=== PATIENT | female | born 1965 | race Caucasian/White ===

== ENCOUNTER 2016-06-19 09:45 | Emergency (ER) | payer OTHER ==
[2016-06-19 10:38] VITALS: BP 102/78; PULSE 64; RESP 16; O2SAT 97
--- NOTE | 2016-06-19 11:36 | UCPHY ---
[id number] 06/19/16 11:03 HPI/ROS: CHIEF COMPLAINT: Right wrist pain HISTORY OF PRESENT ILLNESS: 50-year-old female presents complaining of right wrist pain after she slipped on ice today falling on outstretched right hand. Patient is [id number]. Patient denies head strike, any complaints. She denies numbness or tingling to her just right pain. No previous injuries to this wrist. (Adalgisa Carrillo) Physical Exam: GEN: Awake, alert, oriented, no acute distress RESP: nl resp effort MSK: Right wrist swelling and ecchymosis over pisiform, tenderness to palpation over ulnar styloid, no snuffbox tenderness, no distal radius tenderness, sensation intact to light touch, good radial motor and sensory, 2+ radial pulses, sensation intact to light touch SKIN: No break in skin (Adalgisa Carrillo) Constitutional: Initial Vital Signs Heart Rate 64 06/19/16 10:36 Respiratory Rate 16 06/19/16 10:36 Blood Pressure 102/78 06/19/16 10:36 O2 Sat (%) 97 06/19/16 10:36 O2 Delivery Mode Room Air Allergies/Adverse Reactions: codeine [Codeine] Adverse Reaction (Mild, Verified 06/19/16 11:06) Other-Enter Comments Home Medications: Medication Instructions Recorded Desmopressin [DDAVP Nasal [place] 1 spray ALTNARE DAILY 09/08/12 (RX)] Hydrocortisone [Cortef] 09/08/12 Levothyroxine [Synthroid 100 mcg 09/08/12 (RX)] Medical Decision Making - Diagnostics Imaging: Right wrist x-ray independently reviewed by me- triquetral fracture (Adalgisa Carrillo) ED Course/Re-evaluation: 1pm- radiologist called after the patient was discharged home indicating a triquetrum fracture. Patient was placed in a Velcro wrist splint prior to discharge, I have left her a message to call back to discuss her fracture seen on x-ray. She was given Ortho follow-up. (Adalgisa Carrillo) Urgent Care PA supervision Physician documentation: The patient was evaluated and managed by the physician executive assistant to president. My co- signature indicates that I have reviewed this chart and I agree with the findings and plan of care as documented. I am the secondary supervising physician. (Tone Cooper) Departure - Departure Disposition: Home, Routine, Self-Care Clinical Impression: Right wrist injury Condition: Good Instructions: Wrist Injury (ED) Additional Instructions: Rest, ice, elevate, take 600mg of ibuprofen every 8 hours with food for 3-5 days as needed for pain and swelling. Follow up with orthopedist in 3-5 days, call today schedule this appointment. Wear your wrist splint until you follow up with orthopedist. Return to the emergency department for any numbness, tingling, discoloration of you limb or other concerns. Referrals: Tone Albarran MD [Medical Doctor] - As per Instructions (Orthopedist on-call ) - PQRS PQRS Measurement: na (Adalgisa Carrillo)
--- NOTE | 2016-06-19 13:20 | DX ---
Right Wrist, Four Views History: Fall. Trauma, pain. Findings: Nondisplaced acute triquetral fracture noted. Distal radius and ulna appear intact. No defi nite scaphoid fracture. Metacarpal bases appear intact. Impression: Triquetral nondisplaced fracture. Findings and recommendations discussed with Emergency Department physician, Dr. Tone Cooper, at 1310 hours today. Final report concurs with initial preliminary interpretation.
== END 2016-06-19 11:55 | disposition home or self-care (01) ==
LOC: CED 09:45
DX: S69.91XA Unspecified injury of right wrist, hand and finger(s), initial encounter (principal); W00.0XXA Fall on same level due to ice and snow, initial encounter
CPT/HCPCS: 73110-PO; 99214-PO; G0463-PO; L3908

== ENCOUNTER 2016-08-12 22:16 | Emergency (ER) | payer OTHER | END 2016-08-12 22:20 | disposition home or self-care (01) | LOC: CED 22:16 | DX: R50.9 Fever, unspecified (principal); Z53.21 Procedure and treatment not carried out due to patient leaving prior to being seen by health care provider ==

== ENCOUNTER 2016-08-12 22:37 | Inpatient (IN) | payer OTHER ==
[2016-08-12] MEDS ORDERED: ACETAMINOPHEN 325 MG SUPP PR ONE (22:46)
[2016-08-12] MEDS ORDERED: ACETAMINOPHEN 500 MG TAB ONE (22:46)
[2016-08-12] MEDS ORDERED: IBUPROFEN 600 MG TAB PO ONE ×2 (22:50→22:52)
[2016-08-12] MEDS ORDERED: ACETAMINOPHEN 500 MG TAB PO ONE (22:52)
[2016-08-12] MEDS ORDERED: HYDROCORTISONE 100 MG/2 ML VIAL IVP ONE (22:53)
[2016-08-12] MEDS ORDERED: HYDROCORTISONE 100 MG/2 ML VIAL ONE (22:53)
[2016-08-12] MEDS ORDERED: NS 1,000 ML IV ONE ×2 (22:55→23:48)
--- NOTE | 2016-08-12 23:04 | CPEKG ---
Heart Rate: 84 RR Interval: 714 P-R Interval: 136 QRSD Interval: 102 QT Interval: 372 QTC Interval: 440 P [place]: 20 QRS [place]: 15 T Wave [place]: 58 EKG Severity - NORMAL ECG - EKG Impression: SINUS RHYTHM Electronically Signed By: Partha Hanna 13-Aug-2016 02:23:29
[2016-08-12 23:11] LABS: % IMMATURE GRANULYOCYTES 0.3 % (0.0-1.1); ABSOLUTE IMMATURE GRANULOCYTES 0.02 10^3/uL (0.00-0.10); ADD DIFF? NO; ADD MORPH? NO; ADD SCAN? NO; ATYPICAL LYMPHOCYTE FLAG 0 (0-99); FRAGMENT RBC FLAG 0 (0-99); HEMATOCRIT 44.1 % (38.0-47.0); HEMOGLOBIN 15.1 g/dL (12.6-16.3); LEFT SHIFT FLG 0 (0-99); LIPEMIA HEMOLYSIS FLAG 90 (0-99); MEAN CELL HEMOGLOBIN 30.7 pg (27.9-34.1); MEAN CELL HEMOGLOBIN CONCENTR. 34.2 g/dL (32.4-36.7); MEAN CELL VOLUME 89.6 fL (81.5-99.8); MEAN PLATELET VOLUME 10.5 fL (8.7-11.7); PLATELET CLUMPS FLAG 40 (0-99); PLATELET COUNT 255 10^3/uL (150-400); RED BLOOD CELL COUNT 4.92 10^6/uL (4.18-5.33); RED CELL DISTRIBUTION WIDTH 12.9 % (11.5-15.2)
--- NOTE | 2016-08-12 23:13 | EDPHY ---
H & P Stated Complaint: COLD LIKE SX 2 DAYS, CONFUSION SINCE 9 P.M. 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 Patient has been having upper respiratory symptoms for the last 2 days with subjective fevers. She has some nausea and vomiting on Saturday. Has had a dry nonproductive cough. Otherwise suggest is in fevers and general malaise. This evening she was feeling unwell in her brought her dinner in bed. He checked on her later when she had any eat much. About 9 o'clock this evening he went to check on her and she was staring into space and was not responding to him at that time. She would just repeat single words. She did not have a loss of consciousness. She has had a similar episode about 10 years ago for which she is admitted to [facility] for 10 days for septic workup which did not reveal any acute source of infection. She does normally take hydrocortisone 10 mg twice a day states she has been taking her medications. No urinary symptoms. Right now is only complaining of feeling cold. ROS: 10 point Review of Systems is negative except as noted in the HPI. 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 Medications: Hydrocortisone 10 mg twice a day Thyroxine DDAVP Allergies: Codeine Physical exam: Gen: Awake, Alert, No Distress, fever to 40.2 HEENT: Nose: no rhinorrhea Eyes: PERRLA, EOMI Mouth: Moist mucosa Neck: Supple, no JVD Chest: nontender, lungs clear to auscultation Heart: S1, S2 normal, no murmur Abd: Soft, mild generalized tenderness, nonfocal, no guarding Back: no CVA tenderness, no midline tenderness Ext: no edema, non-tender Skin: no rash Neuro: CN II-XII intact, Sensation grossly intact, Strength 5/5 in bilateral upper and lower extremities - Personal History Current Tetanus/Diphtheria Vaccine: Yes Current Tetanus Diphtheria and Acellular Pertussis (TDAP): Yes Tetanus Vaccine Date: 2011 - Medical/Surgical History Hx Asthma: No Hx Chronic Respiratory Disease: No Hx Diabetes: No Hx Cardiac Disease: No Hx Renal Disease: No Hx Cirrhosis: No Hx Alcoholism: No Hx HIV/AIDS: No Hx Splenectomy or Spleen Trauma: No Other PMH: PITUITARY TUMOR, PACEMAKER - Social History Smoking Status: Never smoked Constitutional: Initial Vital Signs Temperature (C) 40.2 C H 08/12/16 22:40 Heart Rate 102 H 08/12/16 22:40 Respiratory Rate 20 08/12/16 22:40 Blood Pressure 110/81 H 08/12/16 22:40 O2 Sat (%) 93 08/12/16 22:40 O2 Delivery Mode Room Air Allergies/Adverse Reactions: codeine [Codeine] Adverse Reaction (Mild, Verified 08/12/16 22:50) Other-Enter Comments Home Medications: Medication Instructions Recorded Desmopressin [DDAVP Nasal [place] 1 spray ALTNARE DAILY 09/08/12 (RX)] Hydrocortisone [Cortef] 09/08/12 Levothyroxine [Synthroid 100 mcg 09/08/12 (RX)] Medical Decision Making ED Course/Re-evaluation: 50-year-old with a history of hypoadrenalism secondary to pituitary adenoma with fever here. There is no focal source of infection on exam. This could be Adisonian Crisis vs infection. I have given her 100 mg of hydrocortisone intravenously. Blood cultures, chest x-ray, urine cultures have been sent. - Data Points Laboratory Results: Laboratory Results 08/12/16 22:48 08/12/16 22:48 08/12/16 08/12/16 08/12/16 23:33 23:15 22:48 WBC RBC Hgb Hct MCV MCH MCHC RDW Plt Count MPV Neut % (Auto) Lymph % (Auto) [place] % (Auto) Eos % (Auto) Baso % (Auto) Nucleat RBC Rel Count Absolute Neuts (auto) Absolute Lymphs (auto) Absolute Monos (auto) Absolute Eos (auto) Absolute Basos (auto) Absolute Nucleated RBC Immature Gran % Immature Gran # Sodium 133 mEq/L L mEq/L (134-144) Potassium 3.3 mEq/L L mEq/L (3.5-5.2) Chloride 94 mEq/L L mEq/L (97-110) Carbon Dioxide 26 mEq/l mEq/l (22-31) Anion Gap 13 mEq/L mEq/L (8-16) BUN 21 mg/dL mg/dL (7-23) Creatinine 1.3 mg/dL H mg/dL (0.6-1.0) Estimated GFR 43 Glucose 77 mg/dL mg/dL (70-100) Calcium 9.1 mg/dL mg/dL (8.5-10.4) Total Bilirubin 0.8 mg/dL mg/dL (0.1-1.4) Conjugated Bilirubin 0.6 mg/dL H mg/dL (0.0-0.5) Unconjugated Bilirubin 0.2 mg/dL mg/dL (0.0-1.1) AST 115 IU/L H IU/L (14-46) ALT 83 IU/L H IU/L (9-52) Alkaline Phosphatase 210 IU/L H IU/L (38-126) Total Protein 7.9 g/dL g/dL (6.3-8.2) Albumin 4.4 g/dL g/dL (3.5-5.0) Lipase 328.0 IU/L H IU/L (23-300) Urine Color PALE YELLOW Urine Appearance CLEAR Urine pH 5.0 (5.0-7.5) Ur Specific [place] 1.003 (1.002-1.030) Urine Protein NEGATIVE (NEGATIVE) Urine Ketones NEGATIVE (NEGATIVE) Urine Blood NEGATIVE (NEGATIVE) Urine Nitrate NEGATIVE (NEGATIVE) Urine Bilirubin NEGATIVE (NEGATIVE) Urine Urobilinogen NEGATIVE EU EU (0.2-1.0) Ur Leukocyte Esterase NEGATIVE (NEGATIVE) Ur Culture Indicated? NOT INDICATED (NI) Urine Glucose NEGATIVE (NEGATIVE) Influenza Typ A,B (DFA) Pending 08/12/16 22:48 WBC 6.59 10^3/uL 10^3/uL (3.80-9.50) RBC 4.92 10^6/uL 10^6/uL (4.18-5.33) Hgb 15.1 g/dL g/dL (12.6-16.3) Hct 44.1 % % (38.0-47.0) MCV 89.6 fL fL (81.5-99.8) MCH 30.7 pg pg (27.9-34.1) MCHC 34.2 g/dL g/dL (32.4-36.7) RDW 12.9 % % (11.5-15.2) Plt Count 255 10^3/uL 10^3/uL (150-400) MPV 10.5 fL fL (8.7-11.7) Neut % (Auto) 58.8 % % (39.3-74.2) Lymph % (Auto) 27.5 % % (15.0-45.0) [place] % (Auto) 12.0 % % (4.5-13.0) Eos % (Auto) 0.6 % % (0.6-7.6) Baso % (Auto) 0.8 % % (0.3-1.7) Nucleat RBC Rel Count 0.0 % % (0.0-0.2) Absolute Neuts (auto) 3.88 10^3/uL 10^3/uL (1.70-6.50) Absolute Lymphs (auto) 1.81 10^3/uL 10^3/uL (1.00-3.00) Absolute Monos (auto) 0.79 10^3/uL 10^3/uL (0.30-0.80) Absolute Eos (auto) 0.04 10^3/uL 10^3/uL (0.03-0.40) Absolute Basos (auto) 0.05 10^3/uL 10^3/uL (0.02-0.10) Absolute Nucleated RBC 0.00 10^3/uL 10^3/uL (0-0.01) Immature Gran % 0.3 % % (0.0-1.1) Immature Gran # 0.02 10^3/uL 10^3/uL (0.00-0.10) Sodium Potassium Chloride Carbon Dioxide Anion Gap BUN Creatinine Estimated GFR Glucose Calcium Total Bilirubin Conjugated Bilirubin Unconjugated Bilirubin AST ALT Alkaline Phosphatase Total Protein Albumin Lipase Urine Color Urine Appearance Urine pH Ur Specific [place] Urine Protein Urine Ketones Urine Blood Urine Nitrate Urine Bilirubin Urine Urobilinogen Ur Leukocyte Esterase Ur Culture Indicated? Urine Glucose Influenza Typ A,B (DFA) Departure - Departure Disposition: [facility] Inpatient Acute Clinical Impression: Fever, Mental status change, Addisonian crisis Condition: Fair Referrals: Essie Burgos MD [Primary Care Provider] - As per Instructions
[2016-08-12 23:18] LABS: ALANINE AMINOTRANSFERASE 83 IU/L (9-52); ALBUMIN 4.4 g/dL (3.5-5.0); ALKALINE PHOSPHATASE 210 IU/L (38-126); ANION GAP 13 mEq/L (8-16); ASPARTATE AMINOTRANSFERASE 115 IU/L (14-46); BILIRUBIN,TOTAL 0.8 mg/dL (0.1-1.4); BILIRUBIN-CONJUGATED 0.6 mg/dL (0.0-0.5); BILIRUBIN-UNCONJUGATED 0.2 mg/dL (0.0-1.1); CALCIUM 9.1 mg/dL (8.5-10.4); CARBON DIOXIDE 26 mEq/l (22-31); CHLORIDE 94 mEq/L (97-110); CREATININE 1.3 mg/dL (0.6-1.0); GLOMERULAR FILTRATION RATE 43; GLUCOSE 77 mg/dL (70-100); POTASSIUM 3.3 mEq/L (3.5-5.2); SODIUM 133 mEq/L (134-144); TOTAL PROTEIN 7.9 g/dL (6.3-8.2)
[2016-08-12 23:28] LABS: COLOR PALE YELLOW; LEUKOCYTE ESTERASE,URINE NEGATIVE (NEGATIVE); NITRITE,URINE NEGATIVE (NEGATIVE)
[2016-08-13] MEDS ORDERED: ONDANSETRON 4 MG/2 ML VIAL IVP PRN (00:18)
[2016-08-13] MEDS ORDERED: LORazepam 2 MG/ML INJ IVP PRN (00:18)
[2016-08-13] MEDS ORDERED: ONDANSETRON DISINTEGRATING 4 MG TAB PO PRN (00:18)
[2016-08-13] MEDS ORDERED: oxyCODONE IR 5 MG TAB PO PRN (00:18)
[2016-08-13] MEDS ORDERED: ACETAMINOPHEN 500 MG TAB PO PRN (00:18)
[2016-08-13] MEDS ORDERED: NS 1,000 ML IV SCH (00:30)
[2016-08-13] MEDS ORDERED: NS 1,000 ML IV ONE (01:26)
[2016-08-13] MEDS: OSELTAMIVIR PHOSPHATE 75 MG CAP PO SCH ×4 (01:52→17:38)
--- NOTE | 2016-08-13 01:58 | PDGENHP ---
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 History is provided by who was at bedside. He states that beginning on Saturday (08/10) patient had developed flu-like symptoms, including chills, myalgias, generalized fatigue and some nausea. Symptoms progressed through Saturday, with some episodes of vomiting, nonbilious/nonbloody, and decreased p.o. intake. Initially this morning on day of presentation, patient seems to be getting better, was able to eat some soup, no longer had nausea or vomiting, but she continued to have fevers and chills throughout her course. Patient's reports checking on her between 5 and 7:00 p.m. and she was mentating well, although lying down in bed. however when he went to check in on her at around 9:00 p.m. and found her to be lethargic and minimally responsive. He then brought her to the ED for further evaluation. Patient's is uncertain if she had been taking all of her medications during her illness. Both he and his are aware that when she has an acute illness she should increase her dose of hydrocortisone, and patient states she had done this on Saturday. On arrival to the ED patient was noted to be febrile to 40.2C, with relatively stable BP and HR. labs revealed normal CBC, however BMP showed hyponatremia and hypokalemia. Chest x-ray did not show any obvious infection and UA was negative. Flu swab returned positive for influenza A. she was given 1 g of Tylenol and fever dm 2 improved and she was also given a stress dose Solu -Cortef. Shortly after given the steroids her mental status rapidly improved. At the time of my evaluation she was back to baseline mental status. She was then initiated on tamiflu and admitted to the hospitalist service for further management. History Information - Allergies/Home Medication List Allergies/Adverse Reactions: codeine [Codeine] Allergy (Mild, Verified 08/13/16 01:05) Other-Enter Comments Home Medications: Desmopressin [DDAVP Nasal [place] (RX)] 1 spray ALTNARE DAILY 09/08/12 [Last Taken 09/08/12 07:00] Hydrocortisone [Cortef] 09/08/12 [Last Taken 09/08/12 07:00] Levothyroxine [Synthroid 100 mcg (RX)] 09/08/12 [Last Taken 09/08/12 07:00] I have personally reviewed and updated: family history, medical history, social history, surgical history - Past Medical History Additional medical history: panhypopituitarism--> since pituitary resection in childhood; one hospitalization for adrenal crisis around 2009, otherwise well controlled. ?QT prolongation during above hospitalization, with AICD placement - Surgical History Additional surgical history: cholecystectomy. pituitary resection at age 11. AICD implantation 2009, replacement 2013 - Family History Additional family history: F: parkinson's disease. M: CAD - Social History Smoking Status: Never smoked Alcohol Use: None Drug Use: None Additional social history: Patient lives with her , works in an office setting. Review of Systems ROS: 10pt was reviewed & negative except for what was stated in HPI & below Physical Exam Temp Pulse Resp BP Pulse Ox 37.6 C 77 17 92/47 L 98 08/13/16 01:17 08/13/16 01:17 08/13/16 01:17 08/13/16 01:17 08/13/16 01:17 O2 (L/minute) 2.5 Constitutional: no apparent distress, appears nourished, not in pain Eyes: PERRL, anicteric sclera, EOMI Ears, Nose, Mouth, Throat: hearing normal, ears appear normal, no oral mucosal ulcers, dry mucous membranes Cardiovascular: regular rate and rhythym, no murmur, rub, or gallop, pulses symmetric bilaterally, No JVD, No edema Peripheral Pulses: 2+: dorsalis-pedis (R), dorsalis-pedis (L) Respiratory: no respiratory distress, no rales or rhonchi, clear to auscultation Gastrointestinal: normoactive bowel sounds, soft, non-tender abdomen, no palpable masses, No guarding, No rebound, No distension Genitourinary: no bladder fullness, no bladder tenderness Skin: warm, normal color, no rashes or abrasions, no fluctuance, no induration, No mottled Musculoskeletal: full muscle strength, no muscle tenderness, normal joint ROM, no joint effusions Neurologic: AAOx3, sensation intact bilaterally, CN II-XII Intact, No weakness, No numbness, No pronator drift, No facial droop Psychiatric: interacting appropriately, not anxious, not encephalopathic, thought process linear Lab Data & Imaging Review 08/12/16 22:48 08/12/16 22:48 WBC 6.59 10^3/uL (3.80-9.50) 08/12/16 22:48 RBC 4.92 10^6/uL (4.18-5.33) 08/12/16 22:48 Hgb 15.1 g/dL (12.6-16.3) 08/12/16 22:48 Hct 44.1 % (38.0-47.0) 08/12/16 22:48 MCV 89.6 fL (81.5-99.8) 08/12/16 22:48 MCH 30.7 pg (27.9-34.1) 08/12/16 22:48 MCHC 34.2 g/dL (32.4-36.7) 08/12/16 22:48 RDW 12.9 % (11.5-15.2) 08/12/16 22:48 Plt Count 255 10^3/uL (150-400) 08/12/16 22:48 MPV 10.5 fL (8.7-11.7) 08/12/16 22:48 Neut % (Auto) 58.8 % (39.3-74.2) 08/12/16 22:48 Lymph % (Auto) 27.5 % (15.0-45.0) 08/12/16 22:48 [place] % (Auto) 12.0 % (4.5-13.0) 08/12/16 22:48 Eos % (Auto) 0.6 % (0.6-7.6) 08/12/16 22:48 Baso % (Auto) 0.8 % (0.3-1.7) 08/12/16 22:48 Nucleat RBC Rel Count 0.0 % (0.0-0.2) 08/12/16 22:48 Absolute Neuts (auto) 3.88 10^3/uL (1.70-6.50) 08/12/16 22:48 Absolute Lymphs (auto) 1.81 10^3/uL (1.00-3.00) 08/12/16 22:48 Absolute Monos (auto) 0.79 10^3/uL (0.30-0.80) 08/12/16 22:48 Absolute Eos (auto) 0.04 10^3/uL (0.03-0.40) 08/12/16 22:48 Absolute Basos (auto) 0.05 10^3/uL (0.02-0.10) 08/12/16 22:48 Absolute Nucleated RBC 0.00 10^3/uL (0-0.01) 08/12/16 22:48 Immature Gran % 0.3 % (0.0-1.1) 08/12/16 22:48 Immature Gran # 0.02 10^3/uL (0.00-0.10) 08/12/16 22:48 Sodium 133 mEq/L (134-144) L 08/12/16 22:48 Potassium 3.3 mEq/L (3.5-5.2) L 08/12/16 22:48 Chloride 94 mEq/L (97-110) L 08/12/16 22:48 Carbon Dioxide 26 mEq/l (22-31) 08/12/16 22:48 Anion Gap 13 mEq/L (8-16) 08/12/16 22:48 BUN 21 mg/dL (7-23) 08/12/16 22:48 Creatinine 1.3 mg/dL (0.6-1.0) H 08/12/16 22:48 Estimated GFR 43 08/12/16 22:48 Glucose 77 mg/dL (70-100) 08/12/16 22:48 Calcium 9.1 mg/dL (8.5-10.4) 08/12/16 22:48 Total Bilirubin 0.8 mg/dL (0.1-1.4) 08/12/16 22:48 Conjugated Bilirubin 0.6 mg/dL (0.0-0.5) H 08/12/16 22:48 Unconjugated Bilirubin 0.2 mg/dL (0.0-1.1) 08/12/16 22:48 AST 115 IU/L (14-46) H 08/12/16 22:48 ALT 83 IU/L (9-52) H 08/12/16 22:48 Alkaline Phosphatase 210 IU/L (38-126) H 08/12/16 22:48 Total Protein 7.9 g/dL (6.3-8.2) 08/12/16 22:48 Albumin 4.4 g/dL (3.5-5.0) 08/12/16 22:48 Lipase 328.0 IU/L (23-300) H 08/12/16 22:48 Urine Color PALE YELLOW 08/12/16 23:15 Urine Appearance CLEAR 08/12/16 23:15 Urine pH 5.0 (5.0-7.5) 08/12/16 23:15 Ur Specific [place] 1.003 (1.002-1.030) 08/12/16 23:15 Urine Protein NEGATIVE (NEGATIVE) 08/12/16 23:15 Urine Ketones NEGATIVE (NEGATIVE) 08/12/16 23:15 Urine Blood NEGATIVE (NEGATIVE) 08/12/16 23:15 Urine Nitrate NEGATIVE (NEGATIVE) 08/12/16 23:15 Urine Bilirubin NEGATIVE (NEGATIVE) 08/12/16 23:15 Urine Urobilinogen NEGATIVE EU (0.2-1.0) 08/12/16 23:15 Ur Leukocyte Esterase NEGATIVE (NEGATIVE) 08/12/16 23:15 Ur Culture Indicated? NOT INDICATED (NI) 08/12/16 23:15 Urine Glucose NEGATIVE (NEGATIVE) 08/12/16 23:15 Influenza Typ A,B (DFA) POSITIVE FOR FLU A (NEGATIVE) H 08/12/16 23:33 Visualized and Interpreted Chest x-ray results: Yes Chest X-Ray results: no infiltrate, normal Visualized and Interpreted EKG results: Yes EKG Interpretation: Positive for: normal sinsus rhythm EKG additional interpertation: TWI in V2-V3; normal intervals Assessment & Plan Assessment: Patient is a 50-year-old female with a history of panhypopituitarism presents to the ED with 3 days flu-like syndrome comes, and which today had been complicated by significant lethargy and altered mental status. ED workup reveals acute influenza a infection which is likely precipitated the adrenal crisis. Symptoms have significantly improved with stress dose steroids. Plan: # acute influenza A infection Patient febrile to 40.2C on arrival, however not tachycardic and with stable BP. CBC did not reveal any evidence of leukocytosis. Other sources of infection has been ruled out, with negative chest x-ray and UA. Will initiate Tamiflu therapy, continue supportive therapy with IV fluid hydration, acetaminophen p.r.n. fever, anti emetics p.r.n. # Acute adrenal insufficiency Patient with panhypopituitarism due to due to resection, now with an acute viral illness which has precipitated a likely adrenal crisis. Altered mental status, significantly elevated temperature, hypokalemia and hyponatremia support this. Mental status has returned to baseline with 1 dose of hydrocortisone 100 mg. Will continue the stress dose q8h and also restart home DDAVP and levothyroxine once doses are confirmed. Will also start PPI for gi prophylaxis in setting of high dose steroids. # acute encephalopathy Likely related to both acute processes described above. No focal neurologic deficit on exam and mental status has significantly improved since arrival to the ED, patient and her feels she is back to her baseline mentation. Continue to monitor and treat as described above. # hyponatremia, hypokalemia, elevated creatinine Renal dysfunction likely related to a combination of decreased p. o. intake in setting of acute illness causing prerenal azotemia, as well as adrenal insufficiency causing electrolyte disturbances. Patient given IV fluid boluses in the ED, is currently receiving stress dosed hormonal replacement treatment. Will continue to monitor electrolytes and replete p.r.n. # transaminitis Etiology unclear, likely related to hypovolemia/hypotension from acute infection /adrenal insufficiency. Patient denies any abdominal pain and is s/p cholecystectomy. Will cont to trend LFTs. # dispo: admit to inpatient service for likely > 2MN stay due to acute adrenal crisis # gen: regular diet DVT ppx: lovenox Full code
[2016-08-13] MEDS ORDERED: HYDROCORTISONE 100 MG/2 ML VIAL IVP SCH ×2 (06:00→12:00)
[2016-08-13 06:20] LABS: % IMMATURE GRANULYOCYTES 0.4 % (0.0-1.1); ABSOLUTE IMMATURE GRANULOCYTES 0.03 10^3/uL (0.00-0.10); ADD DIFF? NO; ADD MORPH? NO; ADD SCAN? NO; ATYPICAL LYMPHOCYTE FLAG 0 (0-99); FRAGMENT RBC FLAG 0 (0-99); HEMATOCRIT 39.7 % (38.0-47.0); HEMOGLOBIN 13.4 g/dL (12.6-16.3); LEFT SHIFT FLG 10 (0-99); LIPEMIA HEMOLYSIS FLAG 90 (0-99); MEAN CELL HEMOGLOBIN CONCENTR. 33.8 g/dL (32.4-36.7); MEAN CELL VOLUME 91.9 fL (81.5-99.8); MEAN PLATELET VOLUME 10.4 fL (8.7-11.7); PLATELET CLUMPS FLAG 0 (0-99); PLATELET COUNT 210 10^3/uL (150-400); RED BLOOD CELL COUNT 4.32 10^6/uL (4.18-5.33)
[2016-08-13] MEDS ORDERED: PROTOCOL MAGNESIUM 1 DOSE IV PRN (06:22)
[2016-08-13] MEDS ORDERED: PROTOCOL POTASSIUM 1 DOSE MISC PRN (06:22)
[2016-08-13 06:29] LABS: INR 1.12 (0.83-1.16); PROTIME(PATIENT) 14.3 SEC (12.0-15.0)
[2016-08-13 06:31] LABS: APTT 29.9 SEC (23.0-38.0)
[2016-08-13 06:35] LABS: ALANINE AMINOTRANSFERASE 65 IU/L (9-52); ALBUMIN 3.1 g/dL (3.5-5.0); ALKALINE PHOSPHATASE 147 IU/L (38-126); ANION GAP 7 mEq/L (8-16); ASPARTATE AMINOTRANSFERASE 80 IU/L (14-46); BILIRUBIN,TOTAL 0.5 mg/dL (0.1-1.4); CALCIUM 7.7 mg/dL (8.5-10.4); CARBON DIOXIDE 21 mEq/l (22-31); CHLORIDE 113 mEq/L (97-110); GLOMERULAR FILTRATION RATE 58; GLUCOSE 134 mg/dL (70-100); POTASSIUM 4.2 mEq/L (3.5-5.2); SODIUM 141 mEq/L (134-144); TOTAL PROTEIN 5.7 g/dL (6.3-8.2)
[2016-08-13] MEDS: ENOXAPARIN 40 MG/0.4 ML SYR SC SCH (09:28)
[2016-08-13] MEDS: PANTOPRAZOLE SODIUM 40 MG TAB PO SCH (09:28)
--- NOTE | 2016-08-13 13:43 | HOSPPROG ---
Hospitalist Progress Note Assessment/Plan: 50 yo F with hx of panhypopituitarism s/p pituitary resection admitted with acute encephalopathy in setting of adrenal crisis with acute influenza # acute adrenal crisis: in setting of acute illness with influenza and underlying chronic adrenal insufficiency/panhypopit. She has been started on stress dose steroids and mental status has improved significantly already. Presenting hypokalemia and hyponatremia have also resolved. Will decrease from hydrocortisone 100 q6 to 50 q 8 and monitor. If she continues to do well will transition to oral regimen in the morning. # acute encephalopathy: in the setting of above, completely resolved # acute influenza A: started on tamiflu, other than adrenal crisis has been doing well without respiratory issues or sepsis # hyponatremia/hypokalmia: 2/2 adrenal crisis, resolved # marcos: in setting of acute illness and poor po intake, resolved with IVF # transaminitis: has been trending down, no abdominal pain, suspect related to adrenal crisis as above, will continue to trend # dispo: IP status, high risk presenting issues requiring IV steroids Patient new to my care. Old records reviewed and summarized as above. Subjective: no significant overnight events, patient currently feeling much better, eating and drinking well, urinating normally Objective: Vital Signs Temp Pulse Resp BP Pulse Ox 36.4 C 51 L 18 104/72 99 08/13/16 12:12 08/13/16 12:12 08/13/16 12:12 08/13/16 12:12 08/13/16 12:12 Laboratory Results 08/13/16 06:00 08/13/16 06:00 08/12/16 08/13/16 08/14/16 05:59 05:59 05:59 Intake Total 3509 Balance 3509 PT 14.3 SEC (12.0-15.0) 08/13/16 06:00 INR 1.12 (0.83-1.16) 08/13/16 06:00 awake alert nad anicteric op clear rrr no mrg cta b soft nt nd no cce warm dry well perfused oriented appropriate ICD10 Worksheet Patient Problems: Problems Problem Status Onset Fever Acute Mental status change Acute Addisonian crisis Acute
[2016-08-13] MEDS: DESMOPRESSIN ALTNARE SCH (14:53)
[2016-08-13] MEDS: HYDROCORTISONE 100 MG/2 ML VIAL IVP SCH ×2 (15:51→21:27)
[2016-08-13 18:01] LABS: POTASSIUM 3.7 mEq/L (3.5-5.2)
[2016-08-13 19:57] VITALS: PULSE 50
[2016-08-13] MEDS ORDERED: POTASSIUM CL 10 MEQ TAB PO ONE (20:07)
[2016-08-13] MEDS ORDERED: IBUPROFEN 200 MG TAB PO ONE (21:15)
[2016-08-14 05:12] VITALS: RESP 16; O2SAT 95
[2016-08-14] MEDS: HYDROCORTISONE 100 MG/2 ML VIAL IVP SCH (05:36)
[2016-08-14] MEDS ORDERED: LEVOTHYROXINE 175 MCG TAB PO SCH (06:00)
[2016-08-14 06:11] LABS: % IMMATURE GRANULYOCYTES 0.4 % (0.0-1.1); ABSOLUTE IMMATURE GRANULOCYTES 0.02 10^3/uL (0.00-0.10); ADD DIFF? NO; ADD MORPH? NO; ADD SCAN? NO; ATYPICAL LYMPHOCYTE FLAG 0 (0-99); FRAGMENT RBC FLAG 0 (0-99); HEMATOCRIT 34.1 % (38.0-47.0); HEMOGLOBIN 11.2 g/dL (12.6-16.3); LEFT SHIFT FLG 0 (0-99); LIPEMIA HEMOLYSIS FLAG 80 (0-99); MEAN CELL HEMOGLOBIN 30.3 pg (27.9-34.1); MEAN CELL HEMOGLOBIN CONCENTR. 32.8 g/dL (32.4-36.7); MEAN CELL VOLUME 92.2 fL (81.5-99.8); MEAN PLATELET VOLUME 10.3 fL (8.7-11.7); PLATELET CLUMPS FLAG 0 (0-99); PLATELET COUNT 208 10^3/uL (150-400); RED CELL DISTRIBUTION WIDTH 13.3 % (11.5-15.2)
[2016-08-14 06:21] LABS: ANION GAP 9 mEq/L (8-16); CALCIUM 8.4 mg/dL (8.5-10.4); CARBON DIOXIDE 20 mEq/l (22-31); CHLORIDE 113 mEq/L (97-110); CREATININE 0.7 mg/dL (0.6-1.0); GLOMERULAR FILTRATION RATE > 60; GLUCOSE 97 mg/dL (70-100); MAGNESIUM 1.9 mg/dL (1.6-2.3); POTASSIUM 3.6 mEq/L (3.5-5.2); SODIUM 142 mEq/L (134-144)
[2016-08-14] MEDS: PANTOPRAZOLE SODIUM 40 MG TAB PO SCH (08:15)
[2016-08-14] MEDS: DESMOPRESSIN ALTNARE SCH (08:15)
[2016-08-14] MEDS: OSELTAMIVIR PHOSPHATE 75 MG CAP PO SCH (08:15)
[2016-08-14] MEDS: ENOXAPARIN 40 MG/0.4 ML SYR SC SCH (08:20)
[2016-08-14 08:55] VITALS: BP 105/60; TEMP 97.8
[2016-08-14] MEDS ORDERED: POTASSIUM CL 10 MEQ TAB PO ONE (09:00)
--- NOTE | 2016-08-14 10:15 | PDDCSUM ---
Discharge Summary Discharge Summary: Dates of service 08/13-08/14/16 Discharge dx: # adrenal crisis # panhypopituitarism # acute influenza A # hyponatremia # hypokalemia # marcos # transaminitis Consultations/procedures: none 50 yo F with PMH of panhypopitutarism s/p pituitary resection presenting with adrenal crisis in setting of influenza A Hospital course by problem # acute adrenal crisis: in setting of acute illness with influenza and underlying chronic adrenal insufficiency/panhypopit. Given stress dose steroids with rapid improvement, steroid dosing tapered while in house without recurrence of sxs. Will continue higher hydrocortisone doses after dc with gradual taper. # acute encephalopathy: in the setting of above, completely resolved # acute influenza A: started on tamiflu, other than adrenal crisis has been doing well without respiratory issues or sepsis # hyponatremia/hypokalmia: 2/ adrenal crisis, resolved # marcos: in setting of acute illness and poor po intake, resolved with IVF # transaminitis: trending down, no abdominal pain, suspect related to adrenal crisis as above. Patient should have this followed up after dc to be sure it continues to resolve. Dispo: dc home Meds: see EHR, no changes made to her home medications other than increased dose of hydrocortisone to be tapered over 10 days F/u with PCP and ip/mosaic technician in next 1-2 weeks Will need to have LFTs rechecked in next 1-2 weeks > 35 minutes spent in care of this patient, more than half in face to face counseling of patient and her family in f/u care plans and items to look for
== END 2016-08-14 12:14 | disposition home or self-care (01) | DRG 644 ==
LOC: F1N 08-13 00:47
PROVIDERS: ADMIT Internal Medicine; ATTEND Internal Medicine
DX: E27.2 Addisonian crisis (principal); J10.81 Influenza due to other identified influenza virus with encephalopathy; E87.1 Hypo-osmolality and hyponatremia; E87.6 Hypokalemia; N17.9 Acute kidney failure, unspecified; E20.9 Hypoparathyroidism, unspecified; Z95.0 Presence of cardiac pacemaker
CPT/HCPCS: 96374; J1650